=== PATIENT | female | born 1980 | race Two or more races ===

== ENCOUNTER 2016-11-21 11:50 | Emergency (ER) | payer SELFPAY ==
[2016-11-21] MEDS ORDERED: Ketorolac 60 MG/2 ML SDV IM ONE (12:05)
--- NOTE | 2016-11-21 12:15 | EDM.PDOC ---
ED HPI GENERAL MEDICAL PROBLEM - General Chief Complaint: Back Pain or Injury Stated Complaint: UNK Time Seen by Provider: 11/21/16 12:07 Source of Information: Reports: Patient History Limitations: Reports: No Limitations - History of Present Illness INITIAL COMMENTS - FREE TEXT/NARRATIVE: HISTORY AND PHYSICAL: 35-year-old female presents to the emergency room with "tailbone" pain x 4 days History of Present Illness: 35-year-old female presents to the emergency room with tailbone pain that has been persistent for the last 4 days. She reports that she slipped and fell on her bottom 4 days ago has progressively become more painful. Denies hitting her head or any loss of consciousness with this event. Patient reports she has a history of ankylosing spondylitis for several years. She reports that "a long time ago I was told I need a hip replacement" to her left hip. Patient reports she has chronic back pain that radiates into her left gluteus/hip with some numbness and tingling to the left lower extremity. Reports she was taking opiate pain medications for discomfort. Patient reports that she has taken herself off the opiates as she she was using too much. He certainly went to [facility] and was evaluated for this pain and was referred to [place]. Patient denies any urinary or fecal incontinence. Patient states she has a past medical history of gastrointestinal "issues" which she has doctored for in [place]. She reports that she does not have a diagnosis for her loose stools which she has experienced for several years. Upon arrival to the emergency room nursing staff did have to help patient out of her vehicle into a private room due to patient demeanor. Review of Systems: As per history of present illness and below otherwise all systems reviewed and negative. Past medical history: As per history of present illness and as reviewed below otherwise noncontributory. Surgical history: As per history of present illness and as reviewed below otherwise noncontributory. Social history: No reported history of drug or alcohol abuse. Family history: As per history of present illness and as reviewed below otherwise noncontributory. Physical exam: Gen.: Patient is a 35-year-old nontoxic-appearing female. Able to answer questions appropriately. Appears anxious and tearful. Alert and oriented HEENT: Atraumatic, normocehpalic, pupils reactive, negative for conjunctival pallor or scleral icterus, mucous membranes moist, throat clear, neck supple, nontender, trachea midline. Lungs: Clear to auscultation, breath sounds equal bilaterally, chest non tender. Heart: S1S2, regular, negative for clicks, rubs, or JVD. Abdomen: Soft, nondistended, nontender. Negative for masses or hepatossplenmegaly. Negative for costovertebral tenderness. Pelvis: Stable nontender. Genitourinary: Deferred. Rectal: Deferred Extremities: Atraumatic, negative for cords or calf pain. Neurovascular unremarkable. Neuro: Awake, alert, oriented. Cranial nerves II through XII unremarkable. Cerebellum unremarkable. Motor and sensory unremarkable throughout. Exam nonfocal. Diagnostics: X-ray of the pelvis, sacrum, coccxy Therapeutics: Patient declined any narcotic pain medication, agreeable to Toradol IM Impression: [Coccxydina] Plan: 1. Instructed patient to take anti-inflammatory as directed on the bottle and as discussed. Steroid was prescribed please take as directed. We continue to ice the area for comfort. Instructed to get a doughnut seat cushion for seating comfort. 2. Patient reports she will follow-up with Dr. Hiwot clifton in the next 1-2 days. Return to the emergency room if symptoms worsen as discussed. Definitive disposition and diagnosis as appropriate pending reevaluation and review of above. Onset: Other (4 days ago) Duration: Day(s): (4) Location: Reports: Pelvis Lower Back Pain Score (Numeric/FACES): 10 - Related Data Allergies Allergy/AdvReac Type Severity Reaction Status Date / Time No Known Allergies Allergy Verified 03/21/16 07:05 Home Meds: Home Meds methylPREDNISolone [Medrol] 4 mg PO ASDIRECTED #1 tab.ds.pk 11/21/16 [Rx] Past Medical History - Past Health History Medical/Surgical History: Denies Medical/Surgical History Gastrointestinal History: Reports: Other (See Below) Other Gastrointestinal History: doctoring no DX yet [employer] History: Reports: Other OB/BYN History: ovarian cysts Musculoskeletal History: Reports: Back Pain, Chronic, Fibromyalgia, Other (See Below) Other Musculoskeletal History: spondylosis Psychiatric History: Reports: Anxiety - Infectious Disease History Infectious Disease History: Reports: Chicken Pox Other Infectious Disease History: unknown - Past Surgical History Female Surgical History: Reports: Tubal Ligation Social & Family History - Family History Family Medical History: Unobtainable - Tobacco Use Smoking Status *Q: Never Smoker Second Hand Smoke Exposure: No - Caffeine Use Caffeine Use: Reports: Coffee, Soda, Tea - Recreational Drug Use Recreational Drug Use: No Drug Use in Last 12 Months: Yes Recreational Drug Type: Reports: Marijuana/Hashish Recreational Drug Use Frequency: Daily ED ROS GENERAL - Review of Systems Review Of Systems: See Below ED EXAM,LOWER BACK PAIN/INJURY - Physical Exam Exam: See Below (See dictation) Course - Vital Signs Last Recorded V/S: Last Vital Signs Temp 36.3 C 11/21/16 11:55 Pulse 115 H 11/21/16 11:55 Resp 18 11/21/16 11:55 BP 132/71 11/21/16 11:55 Pulse Ox 96 11/21/16 11:55 - Orders/Labs/Meds Labs: Laboratory Tests 11/21/16 Range/Units 12:37 HCG, Qual NEGATIVE (NEG) Meds: Medications Discontinued Medications Generic Name Dose Route Start Last Admin Trade Name Frances PRN Reason Stop Dose Admin Ketorolac Tromethamine 60 mg 11/21/16 12:05 11/21/16 12:15 Toradol IM 11/21/16 12:06 60 mg ONETIME ONE Administration Departure - Departure Time of Disposition: 14:06 Disposition: Home, Self-Care 01 Condition: Good Clinical Impression: Coccyxdynia - Discharge Information Prescriptions: methylPREDNISolone [Medrol] 4 mg PO ASDIRECTED #1 tab.ds.pk Forms: ED Department Discharge Additional Instructions: The following information is given to patients seen in the emergency department who are being discharged to home. This information is to outline your options for follow-up care. We provide all patients seen in our emergency department with a follow-up referral. The need for follow-up, as well as the timing and circumstances, are variable depending upon the specifics of your emergency department visit. If you don't have a primary care physician on staff, we will provide you with a referral. We always advise you to contact your personal physician following an emergency department visit to inform them of the circumstance of the visit and for follow-up with them and/or the need for any referrals to a consulting specialist. The emergency department will also refer you to a specialist when appropriate. This referral assures that you have the opportunity for followup care with a specialist. All of these measure are taken in an effort to provide you with optimal care, which includes your followup. Under all circumstances we always encourage you to contact your private physician who remains a resource for coordinating your care. When calling for followup care, please make the office aware that this follow-up is from your recent emergency room visit. If for any reason you are refused follow-up, please contact the [facility] emergency department at and asked to speak to the emergency department charge nurse. [address] [place] [address] [facility] [address] [place] [id number] 1. Instructed patient to take anti-inflammatory as directed on the bottle and as discussed. Steroid was prescribed please take as directed. We continue to ice the area for comfort. Instructed to get a doughnut seat cushion for seating comfort. 2. Patient reports she will follow-up with Dr. Anderson in the next 1-2 days. 3. Return to the emergency room if symptoms worsen as as needed as discussed.
--- NOTE | 2016-11-21 13:51 | CR ---
EXAMINATION: Pelvis, sacrum and coccyx HISTORY: Pain COMPARISON: None TECHNIQUE: AP pelvis and 2 views of the sacrum and coccyx FINDINGS: There is no acute osseous abnormality, dislocation, or fracture. The SI joints are symmetr ic. The iliopectineal lines are intact. Hip joint spaces are preserved. There is disruption of the cortex noted within the inferior sacrum within the region just 5, however the margins appear corticated and likely the sequela of a previous injury. IMPRESSION: 1. Corticated defect along the inferior and posterior aspect of the sacrum, likely the sequela of th e previous injury. No definite acute osseous abnormality. Correlate clinically.
[2016-11-21 14:44] VITALS: BP 124/86
== END 2016-11-21 15:22 | disposition home or self-care (01) ==
LOC: MW.ED 11:50
DX: M53.3 Sacrococcygeal disorders, not elsewhere classified (principal); F41.9 Anxiety disorder, unspecified; Z98.51 Tubal ligation status; W01.0XXA Fall on same level from slipping, tripping and stumbling without subsequent striking against object, initial encounter
CPT/HCPCS: 36415; 72170; 72220; 84703; 96372; 99283; J1885

== ENCOUNTER 2017-02-05 09:44 | Emergency (ER) | payer SELFPAY ==
[2017-02-05 09:56] VITALS: BP 125/59
[2017-02-05] MEDS ORDERED: Sodium Chloride 0.9% 2.5 ML Syringe FLUSH PRN (10:02)
[2017-02-05] MEDS ORDERED: Sodium Chloride 0.9% 10 ML Syringe FLUSH PRN (10:02)
--- NOTE | 2017-02-05 10:09 | EDM.PDOC ---
ED HPI GENERAL MEDICAL PROBLEM - General Chief Complaint: Behavioral/Psych Stated Complaint: MENTAL HEALTH/MED CLEARANCE Time Seen by Provider: 02/05/17 09:56 - History of Present Illness INITIAL COMMENTS - FREE TEXT/NARRATIVE: HISTORY AND PHYSICAL: History of present illness: The patient is a 36-year-old female with a history of chronic hip pain and also has depression per her via police information and is taking a medication for that and presents with police after exhibiting progressively accelerating erratic behavior per the . told police that over the last several weeks to months she has been having accelerated erratic behavior thinking that she is possessed and exhibiting bahai overtones. The has been working with the anabaptist try to see if this would help her and things have accelerated. The patient called 911 herself this morning stating that she needed to "get out of her situation" and due to her erratic speech and tangential thoughts and ambulance as well as police were sent to the house. This point I talked to the who felt that he has lost control of the situation and that she needs further help. Per police she started exhibiting compulsive-like behavior throwing herself on the floor and then she attempted to run away from the police and was grabbed by the belt line and the arm and was placed in handcuffs. The patient complained in the [facility] that she was having left hip pain and she has chronic pain there and she is brought here by police for evaluation of this hip pain as well as these other overlying psychiatric problems. The patient doesn't offer much history to me. She will not corroborate any of these thoughts and in fact prefers to lay on her right side with her eyes closed intermittently throwing herself with erratic motor movements that are quite voluntary. Per police the also stated that she was exhibiting very paranoid-like behavior over the last several days which is accelerated. She does admit to marijuana use but no other drug use or alcohol use. Review of systems: As per history of present illness and below otherwise all systems reviewed and negative. Past medical history: As per history of present illness and as reviewed below otherwise noncontributory. Surgical history: As per history of present illness and as reviewed below otherwise noncontributory. Social history: No reported history of drug or alcohol abuse. Family history: As per history of present illness and as reviewed below otherwise noncontributory. Physical exam: Gen.: Well-developed thin female who is nontoxic and speaks clearly and easily. On my evaluation she was not very forthcoming with information and intermittently would have abnormal motor activities that were clearly voluntary. She complained of hip pain on my evaluation and her responses to my evaluation were very out of proportion. She prefers to lay on her right side with her eyes closed. Patient does have a smell of uncleanliness HEENT: Atraumatic, normocephalic, pupils reactive, negative for conjunctival pallor or scleral icterus, mucous membranes tacky, throat clear, neck supple, nontender, trachea midline. Lungs: Clear to auscultation, breath sounds equal bilaterally, chest nontender. Heart: S1S2, regular rhythm slightly tachycardic rate on my evaluation Abdomen: Soft, nondistended, nontender. Negative for masses or hepatosplenomegaly. Negative for costovertebral tenderness. Pelvis: Stable nontender. Genitourinary: Deferred. Rectal: Deferred. Extremities: Atraumatic, and palpation of the lateral left help the patient jumps around stating that is very painful although there is no bruising bony defect warmth or erythema, negative for cords or calf pain. Neurovascular unremarkable. Neuro: Awake, alert, oriented. Cranial nerves II through XII grossly unremarkable but patient is not very cooperative full exam. Cerebellum unremarkable. Motor and sensory unremarkable throughout. Exam nonfocal. Skin: No diaphoresis normal turgor no evidence of any rashes or lesions Diagnostics: EKG CBC CMP EtOH level TSH UA UCG urine drug screen x-ray of the left hip pelvis Therapeutics: IV access 1100: I have reinterviewed the patient and she is much more interactive speaking clearly and easily and acting appropriately. She is aware of today's events and says that she has had issues and problems but does not elaborate much on them. She understands the gravity of today's experiences and she understands the need for transfer for psychiatric care on an emergent basis and she is agreeable at this time. She seems to still not have much insight into what is occurring but she is agreeable and cooperative at this point. His note the patient was seen here in emergency department in October complaining of this chronic hip and lower back pain. She had x-rays of her pelvis and sacrum and coccyx indicating chronic changes 1129: Case was discussed with the psychiatrist at [facility], Dr. Menuier accepts the patient for transfer. The MELISSA has been performed by dc 1134: Case was discussed with Dr. Baltazar in the ER is aware of psych transfer and accepts the patient to the ER. Please note that we will call for ambulance transfer and are currently awaiting getting the x-ray of the hip and pelvis performed prior to the patient's discharge. I will make sure that these x-rays are performed and results are known prior to the patient's transfer. Impression: Abnormal behavior accelerated likely psychosis with paranoid features Definitive disposition and diagnosis as appropriate pending reevaluation and review of above. Back Pain Score (Numeric/FACES): 9 - Related Data Allergies Allergy/AdvReac Type Severity Reaction Status Date / Time No Known Allergies Allergy Verified 03/21/16 07:05 Home Meds: Home Meds methylPREDNISolone [Medrol] 4 mg PO ASDIRECTED #1 tab.ds.pk 11/21/16 [Rx] Past Medical History - Past Health History Medical/Surgical History: Denies Medical/Surgical History Gastrointestinal History: Reports: Other (See Below) Other Gastrointestinal History: doctoring no DX yet [employer] History: Reports: Other OB/BYN History: ovarian cysts Musculoskeletal History: Reports: Back Pain, Chronic, Fibromyalgia, Other (See Below) Other Musculoskeletal History: spondylosis Psychiatric History: Reports: Anxiety - Infectious Disease History Infectious Disease History: Reports: Chicken Pox Other Infectious Disease History: unknown - Past Surgical History Female Surgical History: Reports: Tubal Ligation Social & Family History - Family History Family Medical History: Unobtainable - Tobacco Use Smoking Status *Q: Never Smoker Second Hand Smoke Exposure: No - Caffeine Use Caffeine Use: Reports: Other - Recreational Drug Use Recreational Drug Use: No Drug Use in Last 12 Months: Yes Recreational Drug Type: Reports: Marijuana/Hashish Recreational Drug Use Frequency: Daily ED ROS GENERAL - Review of Systems Review Of Systems: ROS reveals no pertinent complaints other than HPI. ED EXAM, GENERAL - Physical Exam Exam: See Below (see dictation) Course - Vital Signs Last Recorded V/S: Last Vital Signs Temp 36.7 C 02/05/17 09:52 Pulse 127 H 02/05/17 09:52 Resp 22 H 02/05/17 09:52 BP 125/59 L 02/05/17 09:52 Pulse Ox 97 02/05/17 09:52 - Orders/Labs/Meds Orders: Active Orders 24 hr Category Date Time Status EKG Documentation Completion [RC] STAT Care 02/05/17 10:01 Active Hip Min 2V or 3V w Pelvis Lt [CR] Stat Exams 02/05/17 10:02 Ordered Sodium Chloride 0.9% [Saline Flush] Med 02/05/17 10:02 Active 10 ml FLUSH ASDIRECTED PRN Sodium Chloride 0.9% [Saline Flush] Med 02/05/17 10:02 Active 2.5 ml FLUSH ASDIRECTED PRN Saline Lock Insert [OM.PC] Stat Oth 02/05/17 10:01 Ordered Medication Orders Sodium Chloride (Saline Flush) 10 ml FLUSH ASDIRECTED PRN PRN Reason: Keep Vein Open Last Admin: 02/05/17 10:15 Dose: 10 ml Sodium Chloride (Saline Flush) 2.5 ml FLUSH ASDIRECTED PRN PRN Reason: Keep Vein Open Last Admin: 02/05/17 10:16 Dose: 2.5 ml Labs: Laboratory Tests 02/05/17 02/05/17 02/05/17 Range/Units 10:13 10:13 10:33 WBC 8.34 (4.0-11.0) K/uL RBC 3.86 L (4.30-5.90) M/uL Hgb 12.3 (12.0-16.0) g/dL Hct 36.2 (36.0-46.0) % MCV 93.8 (80.0-98.0) fL MCH 31.9 (27.0-32.0) pg MCHC 34.0 (31.0-37.0) g/dL RDW Std Deviation 44.8 (28.0-62.0) fl RDW Coeff of Mery 13 (11.0-15.0) % Plt Count 255 (150-400) K/uL MPV 9.50 (7.40-12.00) fL Neut % (Auto) 70.1 (48.0-80.0) % Lymph % (Auto) 22.7 (16.0-40.0) % Crisp % (Auto) 6.6 (0.0-15.0) % Eos % (Auto) 0.1 (0.0-7.0) % Baso % (Auto) 0.5 (0.0-1.5) % Neut # (Auto) 5.9 H (1.4-5.7) K/uL Lymph # (Auto) 1.9 (0.6-2.4) K/uL Crisp # (Auto) 0.6 (0.0-0.8) K/uL Eos # (Auto) 0.0 (0.0-0.7) K/uL Baso # (Auto) 0.0 (0.0-0.1) K/uL Nucleated RBC % 0.0 /100WBC Nucleated RBCs # 0 K/uL Sodium 141 (136-146) mmol/L Potassium 3.4 L (3.5-5.1) mmol/L Chloride 111 H (98-110) mmol/L Carbon Dioxide 20 L (21-31) mmol/L BUN 17 (6.0-23.0) mg/dL Creatinine 0.8 (0.6-1.5) mg/dL Est Cr Clr Drug Dosing 85.14 mL/min Estimated GFR (MDRD) > 60.0 ml/min Glucose 107 (60-110) mg/dL Calcium 9.0 (8.8-10.8) mg/dL Total Bilirubin 1.4 (0.1-1.5) mg/dL AST 29 (5-40) IU/L ALT 22 (8-54) IU/L Alkaline Phosphatase 41 (40-150) Total Protein 7.1 (6.0-8.0) g/dL Albumin 4.1 (3.5-5.0) g/dL Globulin 3.0 (2.0-3.5) g/dL Albumin/Globulin Ratio 1.4 (1.3-2.8) TSH 3rd Generation 1.36 (0.47-5.0) uIU/mL Urine Color Urine Appearance Urine pH (5.0-8.0) Ur Specific [place] (1.001-1.035) Urine Protein (NEGATIVE) mg/dL Urine Glucose (UA) (NEGATIVE) mg/dL Urine Ketones (NEGATIVE) mg/dL Urine Occult Blood (NEGATIVE) Urine Nitrite (NEGATIVE) Urine Bilirubin (NEGATIVE) Urine Ictotest Urine Urobilinogen (<2.0) EU/dL Ur Leukocyte Esterase (NEGATIVE) Urine RBC (0-2/HPF) Urine WBC (0-5/HPF) Ur Epithelial Cells (NONE-FEW) Urine Bacteria (NEGATIVE) Urine Mucus (NONE-MOD) Urine HCG, Qual (NEGATIVE) Urine Opiates Screen NEGATIVE (NEGATIVE) Ur Oxycodone Screen NEGATIVE (NEGATIVE) Urine Methadone Screen NEGATIVE (NEGATIVE) Ur Barbiturates Screen NEGATIVE (NEGATIVE) Ur Phencyclidine Scrn NEGATIVE (NEGATIVE) Ur Amphetamine Screen NEGATIVE (NEGATIVE) U Methamphetamines Scrn NEGATIVE (NEGATIVE) U Benzodiazepines Scrn NEGATIVE (NEGATIVE) U Cocaine Metab Screen NEGATIVE (NEGATIVE) U Marijuana (THC) Screen POSITIVE (NEGATIVE) Ethyl Alcohol < 10.0 mg/dL 02/05/17 02/05/17 Range/Units 10:33 10:33 WBC (4.0-11.0) K/uL RBC (4.30-5.90) M/uL Hgb (12.0-16.0) g/dL Hct (36.0-46.0) % MCV (80.0-98.0) fL MCH (27.0-32.0) pg MCHC (31.0-37.0) g/dL RDW Std Deviation (28.0-62.0) fl RDW Coeff of Mery (11.0-15.0) % Plt Count (150-400) K/uL MPV (7.40-12.00) fL Neut % (Auto) (48.0-80.0) % Lymph % (Auto) (16.0-40.0) % Crisp % (Auto) (0.0-15.0) % Eos % (Auto) (0.0-7.0) % Baso % (Auto) (0.0-1.5) % Neut # (Auto) (1.4-5.7) K/uL Lymph # (Auto) (0.6-2.4) K/uL Crisp # (Auto) (0.0-0.8) K/uL Eos # (Auto) (0.0-0.7) K/uL Baso # (Auto) (0.0-0.1) K/uL Nucleated RBC % /100WBC Nucleated RBCs # K/uL Sodium (136-146) mmol/L Potassium (3.5-5.1) mmol/L Chloride (98-110) mmol/L Carbon Dioxide (21-31) mmol/L BUN (6.0-23.0) mg/dL Creatinine (0.6-1.5) mg/dL Est Cr Clr Drug Dosing mL/min Estimated GFR (MDRD) ml/min Glucose (60-110) mg/dL Calcium (8.8-10.8) mg/dL Total Bilirubin (0.1-1.5) mg/dL AST (5-40) IU/L ALT (8-54) IU/L Alkaline Phosphatase (40-150) Total Protein (6.0-8.0) g/dL Albumin (3.5-5.0) g/dL Globulin (2.0-3.5) g/dL Albumin/Globulin Ratio (1.3-2.8) TSH 3rd Generation (0.47-5.0) uIU/mL Urine Color DARK YELLOW Urine Appearance SLT CLOUDY Urine pH 6.0 (5.0-8.0) Ur Specific [place] 1.025 (1.001-1.035) Urine Protein 30 (NEGATIVE) mg/dL Urine Glucose (UA) NEGATIVE (NEGATIVE) mg/dL Urine Ketones 15 H (NEGATIVE) mg/dL Urine Occult Blood NEGATIVE (NEGATIVE) Urine Nitrite NEGATIVE (NEGATIVE) Urine Bilirubin SMALL H (NEGATIVE) Urine Ictotest NEGATIVE Urine Urobilinogen 0.2 (<2.0) EU/dL Ur Leukocyte Esterase NEGATIVE (NEGATIVE) Urine RBC 0-1 (0-2/HPF) Urine WBC 0-2 (0-5/HPF) Ur Epithelial Cells MODERATE (NONE-FEW) Urine Bacteria RARE (NEGATIVE) Urine Mucus LIGHT (NONE-MOD) Urine HCG, Qual NEGATIVE (NEGATIVE) Urine Opiates Screen (NEGATIVE) Ur Oxycodone Screen (NEGATIVE) Urine Methadone Screen (NEGATIVE) Ur Barbiturates Screen (NEGATIVE) Ur Phencyclidine Scrn (NEGATIVE) Ur Amphetamine Screen (NEGATIVE) U Methamphetamines Scrn (NEGATIVE) U Benzodiazepines Scrn (NEGATIVE) U Cocaine Metab Screen (NEGATIVE) U Marijuana (THC) Screen (NEGATIVE) Ethyl Alcohol mg/dL Meds: Medications Generic Name Dose Route Start Last Admin Trade Name Freq PRN Reason Stop Dose Admin Sodium Chloride 10 ml 02/05/17 10:02 02/05/17 10:15 Saline Flush FLUSH 10 ml ASDIRECTED PRN Administration Keep Vein Open Sodium Chloride 2.5 ml 02/05/17 10:02 02/05/17 10:16 Saline Flush FLUSH 2.5 ml ASDIRECTED PRN Administration Keep Vein Open Departure - Departure Time of Disposition: 11:38 Disposition: DC/Tfer to Psych Hosp/Unit 65 Condition: Good Clinical Impression: Psychotic disorder Qualifiers: Psychosis type: other Qualified Code(s): F28 - Other psychotic disorder not due to a substance or known physiological condition - Discharge Information Referrals: PCP,None [Primary Care Provider] - Forms: ED Department Discharge - My Orders Last 24 Hours: My Active Orders 02/05/17 10:01 EKG Documentation Completion [RC] STAT Saline Lock Insert [OM.PC] Stat 02/05/17 10:02 Hip Min 2V or 3V w Pelvis Lt [CR] Stat Sodium Chloride 0.9% [Saline Flush] 10 ml FLUSH ASDIRECTED PRN Sodium Chloride 0.9% [Saline Flush] 2.5 ml FLUSH ASDIRECTED PRN - Assessment/Plan Last 24 Hours: My Active Orders 02/05/17 10:01 EKG Documentation Completion [RC] STAT Saline Lock Insert [OM.PC] Stat 02/05/17 10:02 Hip Min 2V or 3V w Pelvis Lt [CR] Stat Sodium Chloride 0.9% [Saline Flush] 10 ml FLUSH ASDIRECTED PRN Sodium Chloride 0.9% [Saline Flush] 2.5 ml FLUSH ASDIRECTED PRN
[2017-02-05 10:50] LABS: CHLORIDE,CL 111 mmol/L (98-110); SODIUM,NA 141 mmol/L (136-146)
--- NOTE | 2017-02-05 12:27 | CR ---
EXAMINATION: Pelvis and right hip HISTORY: Pain COMPARISON: 11/21/2016 TECHNIQUE: AP pelvis and 2 views of the right hip. FINDINGS: There is no acute osseous abnormality, dislocation, or fracture. Hip joint spaces are prese rved. The iliopectineal lines are intact. Bone mineralization is normal. The SI joints are symmetric. IMPRESSION: Grossly unremarkable pelvis and right hip.
== END 2017-02-05 12:04 ==
LOC: MW.ED 09:44
DX: F28 Other psychotic disorder not due to a substance or known physiological condition (principal)
CPT/HCPCS: 36415; 73502; 80053; 80305; 81001; 81025; 84443; 85025; 93005; 99285; G0480; 99283

== ENCOUNTER 2019-01-01 09:17 | Emergency (ER) | payer MEDICAID ==
[2019-01-01 09:54] VITALS: BP 133/83
--- NOTE | 2019-01-01 10:07 | EDM.PDOC ---
ED HPI GENERAL MEDICAL PROBLEM - General Chief Complaint: Back Pain or Injury Stated Complaint: BACK PAIN Time Seen by Provider: 01/01/19 09:55 Source of Information: Reports: Patient History Limitations: Reports: No Limitations - History of Present Illness INITIAL COMMENTS - FREE TEXT/NARRATIVE: HISTORY AND PHYSICAL: History of present illness: Patient is a 38-year-old female who presents to the ED today for concern of sore throat since this morning and low back pain for the past 2-3 days. Patient states she has a history of chronic low back/pelvic pain which she has had imaging before. Patient states the pain comes and goes over the past couple days she has been bending over more to lift heavy objects and has noticed she has a flare in her low back pain. Patient states the pain is sometimes sharp when she moves and feels like it travels into her pelvis. Patient denies any trauma or injury. Patient states she's been taking Tylenol and ibuprofen with some relief of symptoms. Patient states that she woke up this morning with a sore throat. She is here in the ED with her children who are also being seen for similar symptoms. Patient states that the kids have been sick little bit longer and she woke up the sore throat today. Patient states she's been able to eat and drink without pain or difficulty. Patient denies any other symptoms or concerns. Patient denies loss or retention of bowel and bladder function or saddle anesthesia. Patient denies fever, chills, chest pain, shortness of breath, or cough. Denies headache, neck stiff ness, change in vision, syncope, or near syncope. Denies nausea, vomiting, abdominal pain, diarrhea, constipation, or dysuria. Has not noted any blood in urine or stool. Patient has been eating and drinking appropriately. Review of systems: As per history of present illness and below otherwise all systems reviewed and negative. Past medical history: As per history of present illness and as reviewed below otherwise noncontributory. Surgical history: As per history of present illness and as reviewed below otherwise noncontributory. Social history: See social history for further information Family history: As per history of present illness and as reviewed below otherwise noncontributory. Physical exam: General: Patient is alert, oriented, and in no acute distress. Patient laying comfortably on exam table. HEENT: Atraumatic, normocephalic, pupils equal and reactive bilaterally, negative for conjunctival pallor or scleral icterus, mucous membranes moist, TMs normal bilaterally, throat clear, neck supple, nontender, trachea midline. No drooling or trismus noted. No meningeal signs. No hot potato voice noted. Lungs: Clear to auscultation, breath sounds equal bilaterally, chest nontender. Heart: S1S2, regular rate and rhythm without overt murmur Abdomen: Soft, nondistended, nontender. Negative for masses or hepatosplenomegaly. Negative for costovertebral tenderness. Pelvis: Stable nontender. Genitourinary: Deferred. Rectal: Deferred. Skin: Intact, warm, dry. No lesions or rashes noted. Extremities: Atraumatic, negative for cords or calf pain. Neurovascular unremarkable. No obvious deformity of the complete spine. No step-offs, crepitus , or point tenderness of the spinous process of the complete spine. Patient does have mild to moderate discomfort of the paraspinous muscles of the lumbar spine. SLR intact bilaterally. Patellar reflex intact bilaterally. Tiptoe gait unable to assess due to patient discomfort. Neuro: Awake, alert, oriented. Cranial nerves II through XII unremarkable. Cerebellum unremarkable. Motor and sensory unremarkable throughout. Exam nonfocal. Notes: Patient is seen in the ED with son who tested positive for strep so will give antibiotic at this time. Discussed the importance for follow-up with a primary care provider. Voices understanding and is agreeable to plan of care. Denies any further questions or concerns at this time. Diagnostics: Influenza, strep, UA, urine hCG, lumbar x-ray, pelvic x-ray Therapeutics: Toradol, Norflex, Tramadol Prescription: Diclofenac, Flexeril, Amoxicillin Impression: Acute on chronic low back pain Pharyngitis Plan: 1. Rest, ice or heat the affected area. You can apply ice and or heat 15 minutes on, 15 minutes off. 2. Tylenol as directed for pain management or discomfort. Take medication as prescribed. 3. Follow up with the primary care provider as discussed. Return to the ED as needed and as discussed. Definitive disposition and diagnosis as appropriate pending reevaluation and review of above. tailbone Pain Score (Numeric/FACES): 6 - Related Data Allergies Allergy/AdvReac Type Severity Reaction Status Date / Time No Known Allergies Allergy Verified 01/01/19 09:54 Home Meds: Home Meds Amitriptyline [Elavil] 75 mg PO TID 01/01/19 [History] Cyclobenzaprine [Flexeril] 10 mg PO TID PRN #12 tab 01/01/19 [Rx] Diclofenac Sodium [Voltaren] 75 mg PO BIDMEALS PRN #15 tab.cr 01/01/19 [Rx] Past Medical History - Past Health History Medical/Surgical History: Denies Medical/Surgical History Gastrointestinal History: Reports: Other (See Below) Other Gastrointestinal History: Hard for stomach to digest [employer] History: Reports: Other [employer] History: ovarian cysts Musculoskeletal History: Reports: Back Pain, Chronic, Fibromyalgia, Other (See Below) Other Musculoskeletal History: spondylosis Psychiatric History: Reports: Anxiety, Depression - Infectious Disease History Infectious Disease History: Reports: Chicken Pox Other Infectious Disease History: unknown - Past Surgical History GI Surgical History: Reports: Cholecystectomy Female Surgical History: Reports: Tubal Ligation Social & Family History - Family History Family Medical History: Noncontributory - Tobacco Use Smoking Status *Q: Never Smoker - Caffeine Use Caffeine Use: Reports: Other - Recreational Drug Use Recreational Drug Use: No ED ROS GENERAL - Review of Systems Review Of Systems: ROS reveals no pertinent complaints other than HPI. ED EXAM, GENERAL - Physical Exam Exam: See Below (See dictation) Course - Vital Signs Last Recorded V/S: Last Vital Signs Temp 97.7 F 01/01/19 09:51 Pulse 80 01/01/19 11:52 Resp 16 01/01/19 11:52 BP 133/83 01/01/19 09:51 Pulse Ox 100 01/01/19 11:52 - Orders/Labs/Meds Orders: Active Orders 24 hr Category Date Time Status CULTURE STREP A CONFIRMATION [RM] Stat Lab 01/01/19 10:00 Results STREP SCRN A RAPID W CULT CONF [RM] Stat Lab 01/01/19 10:00 Results Labs: Laboratory Tests 01/01/19 01/01/19 Range/Units 10:30 10:30 Urine Color YELLOW Urine Appearance CLEAR Urine pH 6.0 (5.0-8.0) Ur Specific Jay 1.025 (1.001-1.035) Urine Protein NEGATIVE (NEGATIVE) mg/dL Urine Glucose (UA) NEGATIVE (NEGATIVE) mg/dL Urine Ketones TRACE H (NEGATIVE) mg/dL Urine Occult Blood NEGATIVE (NEGATIVE) Urine Nitrite NEGATIVE (NEGATIVE) Urine Bilirubin NEGATIVE (NEGATIVE) Urine Urobilinogen 0.2 (<2.0) EU/dL Ur Leukocyte Esterase NEGATIVE (NEGATIVE) Urine HCG, Qual NEGATIVE (NEGATIVE) Meds: Medications Discontinued Medications Generic Name Dose Route Start Last Admin Trade Name Freq PRN Reason Stop Dose Admin Ketorolac Tromethamine 60 mg 01/01/19 10:28 01/01/19 10:51 Toradol IM 01/01/19 10:29 60 mg ONETIME ONE Administration Orphenadrine Citrate 60 mg 01/01/19 10:28 01/01/19 10:50 Norflex IM 01/01/19 10:29 60 mg NOW STA Administration Tramadol HCl 50 mg 01/01/19 11:40 01/01/19 11:48 Ultram PO 01/01/19 11:41 50 mg ONETIME ONE Administration Departure - Departure Time of Disposition: 11:37 Disposition: Home, Self-Care 01 Clinical Impression: Acute exacerbation of chronic low back pain Pharyngitis Qualifiers: Pharyngitis/tonsillitis etiology: unspecified etiology Qualified Code(s): J02.9 - Acute pharyngitis, unspecified - Discharge Information Prescriptions: Cyclobenzaprine [Flexeril] 10 mg PO TID PRN #12 tab PRN Reason: Spasms Diclofenac Sodium [Voltaren] 75 mg PO BIDMEALS PRN #15 tab.cr PRN Reason: Pain Instructions: Back Injury Prevention, [id number], Back Exercises, Easy-to- Read, Pharyngitis, [id number] Referrals: Mervat Anderson DO [Primary Care Provider] - Forms: ED Department Discharge Additional Instructions: The following information is given to patients seen in the emergency department who are being discharged to home. This information is to outline your options for follow-up care. We provide all patients seen in our emergency department with a follow-up referral. The need for follow-up, as well as the timing and circumstances, are variable depending upon the specifics of your emergency department visit. If you don't have a primary care physician on staff, we will provide you with a referral. We always advise you to contact your personal physician following an emergency department visit to inform them of the circumstance of the visit and for follow-up with them and/or the need for any referrals to a consulting specialist. The emergency department will also refer you to a specialist when appropriate. This referral assures that you have the opportunity for follow-up care with a specialist. All of these measure are taken in an effort to provide you with optimal care, which includes your follow-up. Under all circumstances we always encourage you to contact your private physician who remains a resource for coordinating your care. When calling for follow-up care, please make the office aware that this follow-up is from your recent emergency room visit. If for any reason you are refused follow-up, please contact the [facility] Emergency Department at and asked to speak to the emergency department charge nurse. [facility] [address] [place] [id number] [place] [address] 1. Rest, ice or heat the affected area. You can apply ice and or heat 15 minutes on, 15 minutes off. 2. Tylenol as directed for pain management or discomfort. Take medication as prescribed. 3. Follow up with the primary care provider as discussed. Return to the ED as needed and as discussed. - My Orders Last 24 Hours: My Active Orders 01/01/19 10:00 CULTURE STREP A CONFIRMATION [RM] Stat STREP SCRN A RAPID W CULT CONF [RM] Stat - Assessment/Plan Last 24 Hours: My Active Orders 01/01/19 10:00 CULTURE STREP A CONFIRMATION [RM] Stat STREP SCRN A RAPID W CULT CONF [RM] Stat
[2019-01-01] MEDS ORDERED: Ketorolac 60 MG/2 ML SDV IM ONE (10:28)
[2019-01-01] MEDS ORDERED: traMADol 50 MG Tab PO ONE (11:40)
[2019-01-01 11:52] VITALS: PULSE 80
--- NOTE | 2019-01-01 12:06 | CR ---
INDICATION: Pain. TECHNIQUE: Three weightbearing images of the lumbar spine. COMPARISON: Today`s pelvis x-ray. FINDINGS: No fracture, disc space narrowing, spondylolisthesis or curvature abnormality. Large amount of stool throughout the colon. IMPRESSION: 1. Negative lumbar spine. 2. Constipation. Dictated by Alex Colon MD @ Jan 01 2019 12:03PM Signed by Dr. Alex Colon @ Jan 01 2019 12:05PM
--- NOTE | 2019-01-01 12:13 | CR ---
INDICATION: Pain. TECHNIQUE: Three weightbearing images of the lumbar spine. COMPARISON: None. FINDINGS: No fracture, bone destruction, disc space narrowing, spondylolisthesis or abnormal curvature. Large amount stool in the colon. IMPRESSION: 1. Negative lumbar spine. 2. Constipation. Dictated by Alex Colon MD @ Jan 01 2019 12:02PM Signed by Dr. Alex Colon @ Jan 01 2019 12:11PM
== END 2019-01-01 11:51 | disposition home or self-care (01) ==
LOC: MW.ED 09:17
DX: J02.9 Acute pharyngitis, unspecified (principal); M54.5 Low back pain; G89.29 Other chronic pain; Z79.899 Other long term (current) drug therapy; F41.9 Anxiety disorder, unspecified; F32.9 Major depressive disorder, single episode, unspecified
CPT/HCPCS: 72100; 72170; 81003; 81025; 87081; 87804; 87880; 96372; 99283; A9270; J1885; J2360